=== PATIENT | female | born 1955 | race Caucasian/White ===

== ENCOUNTER 2025-04-09 06:52 | Day surgery (SDC) | payer MEDICARE, OTHER, SELFPAY ==
[2025-03-24 09:05] VITALS: BMI 30.8
--- NOTE | 2025-04-09 06:53 | WPDHPUPDATE1 ---
History and Physical Update Update Date/Time: 04/09/25 06:53 Patient seen and examined in pre-operative holding area. No interval change in medical history or symptoms. Patient recalls previous discussion of benefits and alternatives to procedure. Continues to desire to proceed with right ring finger a1 jessica release . Reviewed procedure, post-op expectations and risks including but not limited to bleeding, infection, injury to tendon/nerve/vessel, decreased hand function, stiffness, RSD, no change or worsening of symptoms. I discussed the possible use of assistants and their participation in the case. Patient stated understanding and signed the consent form wishing to proceed.
--- NOTE | 2025-04-09 06:54 | P.OP_ITS ---
Procedure Note - Detailed Date of Procedure 04/09/25 Pre-op Diagnosis Right Ring Trigger Finger Post-op Diagnosis Same Procedure Performed right ring finger a1 jessica release Surgeon Yulisa Brennan MD Supervisor [employer] shahbaz silvestre pa-c Anesthesia MAC Description of Procedure INFORMED CONSENT: The patient was seen and examined and marked in the pre-op area.? The patient signed the consent form. PROCEDURE IN DETAIL:The patient taken back to OR on the stretcher in supine position. Time out performed with anesthesia, surgeon and staff agreeing on patient's name site and surgery to be performed SCDs were placed on the lower extremities and inflated. A tourniquet was placed on {right} upper extremity and antibiotics given IV After anesthesia administered sedation I injected {3}cc 1%lido and 0.5% marcaine plain at the operative site The?{right upper extremity}?was prepped and draped in sterile fashion the??{right upper extremity} was? exsanguinated with Esmarch bandage and tourniquet inflated to 250mmHg I proceeded with making a longitudinal incision over the right ring finger A1 jessica through skin and dermis with a 15 blade scalpel. Littler scissors were used to spread through subcutaneous tissue down to the A1 jessica. The A1 jessica was identified and initially incised with a 15 blade scalpel. Littler scissors were used to spread above and below it proximally and distally completing the transection entirely. Ragnell retractor was used withdrawal the FDS and FDP tendons for inspection. The tendons were free of masses and synovitis and gliding smoothly in the sheath without triggering or crepitus. I irrigated with normal saline and closed with 4-0 chromic. A dressing of xeroform, 4x4, naveed, and steven bandage was applied after the tourniquet was let down noting the hand was warm and well perfused. The patient was then awaken from anesthesia and transferred to the recovery room in stable condition.? Complications - none EBL- 0cc Disposition - home in stable condition Shahbaz Silvestre PA-C was essential for positioning, retraction, closure and dressing placement [facility] Billing Surgery - Charge Forward: Surgery Billing ([id number] for shahbaz)
--- OUTSIDE RECORDS SUMMARY | 2025-04-09 07:29 | XMS_ITS | Clinical Summary ---
Author Organization [facility] Address [facility] [place] [address] Care Team Providers Care Machine Chocolate Molder Name Role Phone Kirill Roque MD Primary Care Provider [phone] Allergies Active Allergy Reactions Criticality Noted Date Comments Acetaminophen Other (see comment) 07/11/2021 Unable to take due to high liver enzymes Medications Calcium-Magnesi um-Vitamin D 600-300-400 Liquid Take 2 tablets by mouth daily. Active olopatadine 0.1 % ophthalmic solution Place 1 drop into both eyes daily. 02/10/2021 Active fluticasone propionate 50 MCG/ACT nasal spray 1 spray by Nasal route daily. Active zolpidem (AMBIEN) 10 MG tablet Take 1 tablet (10 mg total) by mouth nightly at bedtime. at bedtime. 06/21/2022 Active PRISTIQ 50 MG 24 hr tablet Take 1 tablet (50 mg total) by mouth daily. 06/18/2023 Active diclofenac EC (VOLTAREN) 50 MG tablet Take 1 tablet (50 mg total) by mouth 2 (two) times daily. 07/30/2023 Active ipratropium (ATROVENT) 0.06 % nasal spray 2 sprays by Nasal route 3 (three) times daily. 07/30/2023 Active Active Problems Problem Noted Date Diagnosed Date Status post total right knee replacement 022 Primary osteoarthritis of right knee 07/06/2021 Resolved Problems Problem Noted Date Diagnosed Date Resolved Date Follow-up examination after orthopedic surgery 11/10/2022 11/13/2022 Family History Medical History Relation Comments No Known Problems Brother Cancer Father Thyroid Heart Disease Mother No Known Problems Sister Relation Status Comments Brother Alive Father Mother Alive Sister Alive Social History Tobacco Use Types Packs/Day Years Used Date Smoking Tobacco: Never Smokeless Tobacco: Never Tobacco Cessation:Counseling Given: Not Answered Alcohol Use Standard Drinks/Week Comments Yes 0 (1 standard drink = 0.6 oz pur e alcohol) occasional Comments No Sex and Gender Information Value Date Recorded Sex Assigned at Not on file Legal Sex Female 5:55 PM MANAGER 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 Gender Identity Not on file Sexual Orientation Not on file Last Filed Vital Signs Vital Sign Reading Time Taken Comments Blood Pressure 112/55 11/22/2021 1:00 PM CDT Pulse 64 11/22/2021 1:00 PM CDT Temperature 36.5 C (97.7 F) 11/22/2021 1:00 PM CDT Respiratory Rate 16 11/22/2021 4:37 AM CDT Oxygen Saturation 96% 11/22/2021 1:00 PM CDT Inhaled Oxygen Concentration - - Weight 74.4 kg (164 lb) 12/25/2023 9:48 AM CDT Height 157.5 cm (5' 2) 12/25/2023 9:48 AM CDT Body Mass Index 30 12/25/2023 9:48 AM CDT Plan of Treatment Health Maintenance Due Date Last Done Comments Colorectal Cancer Screening Colonoscopy (10 Years) 1954 Hepatitis C 1972 DTaP, Tdap and Td Vaccines ( 1 - Tdap) 1973 Mammogram Screening 1994 Zoster Vaccines (1 of 2) 2004 Annual Medicare Wellness Visit 2019 Dexa Scan (General) 2019 Pneumococcal Vaccine: 50+ Years (2 of 2 - PPSV23) 03/03/2020 03/03/2019 COVID-19 Vaccine (3 - 2023-2 5 season) 2024 12/06/2020, 11/06/2020 RSV Immunization or 60+ Years (1 - 1-dose 75+ series) 2029 Meningococcal B Vaccine Aged Out No l onger eligible based on patient's age to complete this topic Meningococcal Vaccine Aged Out No vivek alfredo eligible based on patient's age to complete this topic RSV Immunizations Under 20 Months Aged Out No longer eligible b ased on patient's age to complete this topic Goals Goal Patient Goal Type Associated Problems Recent Progress Patient-Stated? Author Safety Patient/family will have appropriate support at home upon discharge General Amanda Tinajero, MANUSCRIPTS ARCHIVIST Medical Devices Implanted Type Area Facilities Director Device Identifier Shelf Expiration Date Model / Serial / Lot Cement Simplex Hv W/Gentamicin - [id number] Implanted:Qty : 1 on 11/21/2021 by Junito Martinez MD at [facility] Cement Implant Right: Knee [employer] DIV SAYRA JUSTINE 12/01/2022 6195-1-0 / [id number] MAGGI Cement Simplex Hv W/Gentamicin - [id number] Implanted:Qty : 1 on 11/21/2021 by Junito Martinez MD at [facility] Cement Implant Right: Knee [employer] DIV [employer] JUSTINE 12/01/2022 6195-1-0 [id number] MAGGI Femoral Depuy Attune Cruciate Retaining Size 5 Right - [id number] Implanted:Qty : 1 on 11/21/2021 by Junito Martinez MD at [facility] Knee Components Right: Knee [employer] - A [employer] [id number] 07/03/2031 1504-00- 225 / / [id number] Attune Knee System Revision Tibial Base Fixed Bearing Implanted:Qty : 1 on 11/21/2021 by Junito Martinez MD at [facility] Right: Knee [employer] [id number] 12/01/2029 1506-40- 005 / / [id number] Attune Patella Medialized Dome Implanted:Qty : 1 on 11/21/2021 by Junito Martinez MD at [facility] Right: Knee [employer] [id number] 09/02/2026 1518-20- 035 / / [id number] Tibial Insert Fixed Bearing Cruciate Retaining Implanted:Qty : 1 on 11/21/2021 by Junito Martinez MD at [facility] Right: Knee [employer] [id number] 10/03/2022 1516-20- 512 / / [id number] Insurance MEDICARE [facility] [employer] Advance Directives * Full Code (Latest Code Status on File) Date Activated Date Inactivated Comments 11/21/2021 10:42 AM 11/22/2021 4:45 PM Care Teams Machine Chocolate Molder Relationship Specialty Start Date End Date Kirill Roque MD [address] [place] [id number] PCP - General FAMILY PRACTICE 05/12/21
--- OUTSIDE RECORDS SUMMARY | 2025-04-09 07:29 | XMS_ITS | Clinical Summary ---
Author Organization [facility] Address [address] [place] [address] Care Team Providers Care Budget Coordinator Name Role Phone Kirill Roque MD Primary Care Provider Allergies No known active allergies Medications calcium carbonate/vitam in D3 (CALCIUM 600 + D,3, ORAL) Take 2 tablets by mouth medical billing assistant before breakfast. supplement Active fluticasone (FLONASE) 50 mcg/actuation nasal sprayIndication s:Allergic Rhinitis Administer 1 spray into each nostril every morning. Active zolpidem (AMBIEN) 10 mg tabletIndicatio ns:Sleep-Onset Insomnia Take 5 mg by mouth nightly. 3 8 Active venlafaxine XR (EFFEXOR-XR) 75 mg 24 hr capsuleIndicati ons:Anxiety with Depression Take 75 mg by mouth every morning. 4 8 Active peg 400-propylene glycol (SYSTANE GEL) 0.4-0.3 % drops,gelIndica tions:Dry Eye Administer 1 drop into affected eye(s) as needed. Active amoxicillin (AMOXIL) 500 mg tablet/capsuleI ndications:Prop hylaxis, Medical Take 4 tablets one hour prior to procedure or dental cleaning. 4 tablet/capsul e 2 9 Active Active Problems Problem Noted Date Diagnosed Date Obesity 07/08/2018 Primary osteoarthritis of right hip 06/26/2018 Overview (06/26/2018): Added automatically from request for surgery [id number] Primary osteoarthritis of left ankle 04/15/2018 Osteoarthritis of one hip, right 01/09/2018 Right hip pain 01/09/2018 Ankle pain 07/11/2017 Surgical History Surgery Date Site/Laterality Comments DILATION AND CURETTAGE OF UTERUS COLONOSCOPY TOTAL ANKLE ARTHROPLASTY 03/03/2018 - 04/02/2018 Left HIP SURGERY TOTAL HIP ARTHROPLASTY Right Medical History Medical History Date Comments Osteoarthritis Fibromyalgia Family History Medical History Relation Name Comments Thyroid cancer Father Family histor y of malignant neoplasm of thyroid - (Added by TW Conv) Arthritis Mother Family history of arthritis - (Added by TW Conv) Fibromyalgia Mother Family history of fibromyalgia - (Added by TW Conv) Heart disease Mother Family history of cardiac disorder - (Added by TW Conv) Mental illness Mother FHx: mental i llness - (Added by TW Conv) Relation Name Status Comments Father Mother Social History Tobacco Use Types Packs/Day Years Used Date Smoking Tobacco: Former Cigarettes 1 6 1974 Smokeless Tobacco: Never Alcohol Use Standard Drinks/Week Comments Yes 4 (1 standard drink = 0.6 oz pur e alcohol) Comments No Sex and Gender Information Value Date Recorded Sex Assigned at Not on file Legal Sex Female 10:22 AM COMPUTER ANIMATOR Gender Identity Not on file Sexual Orientation Not on file Obstetrics History Last Filed Vital Signs Vital Sign Reading Time Taken Comments Blood Pressure 100/56 07/13/2018 12:00 PM COMPUTER ANIMATOR Pulse 66 07/13/2018 12:00 PM COMPUTER ANIMATOR Temperature 36.7 C (98.1 F) 07/13/2018 12:00 PM COMPUTER ANIMATOR Respiratory Rate 18 07/13/2018 12:0 0 PM COMPUTER ANIMATOR Oxygen Saturation 96% 07/13/2018 11: 42 AM COMPUTER ANIMATOR Inhaled Oxygen Concentration - - Weight 72.1 kg (158 lb 15.2 oz) 021 10:22 AM CDT Height 154.9 cm (5' 1) 04/13/2021 10:2 2 AM CDT Body Mass Index 30.03 04/13/2021 10:22 AM CDT Plan of Treatment Not on file Medical Devices Implanted Type Area Electronics Engineering Manager Device Identifier Shelf Expiration Date Model / Serial / Lot Euro Card [place] [id number] Inbone Sulcus Ankle 2 Dome Component Talar - [id number] Implanted:Qty: 1 on 03/05/2018 by Timo Albert MD at [facility] Other - see comments Left: Ankle [employer] Card [place] 01/01/2026 [id number] / / [id number] Description:INBONE Talar Dom e Sulcus, Plasma [place] Material: CoCr, Flying Pig Digitali Seemage Technology Inc [id number] Infinity 2 Standard Tray Tibial - [id number] Implanted:Qty: 1 on 03/05/2018 by Timo Albert MD at [facility] Other - see comments Left: Ankle [employer] Inc 12/03/2025 [id number] / / [id number] Description:INFINITY Tibial Tray Plasma [place] Material: [id number], Urban Interactions Technology Inc [id number] Ankle 1 Large 10mm Stem Talar - [id number] Implanted:Qty: 1 on 03/05/2018 by Timo Albert MD at [facility] Other - see comments Left: Ankle [employer] Inc 02/02/[id number] / / [id number] Description:INBONE Talar Juvenal m Plasma [place] Material: [id number], Flying Pig Digitali Arthrex Inc Ar-[id number] Tenodesis 4mm 10mm Acl Screw Interference Biocomposite Sterile - [id number] Implanted:Qty: 1 on 03/05/2018 by Timo Albert MD at [facility] Other - see comments Left: Ankle Arthrex Inc 11/01/2019 AR-[id number] / / [id number] Description:Tenodesis Screw BioComposite 4 x 10 mm Infinity Poly Insert Material: [id number] Implanted:Qty: 1 on 03/05/2018 by Timo Albert MD at [facility] Other - see comments Left: Ankle Se[employer] Inc 02/09/2025 / / [id number] Description:INFINITY Poly In sert Material: UHMWPE Seemage Technology Inc [id number] K-Wire 1.4mm 228mm Wire Fixation - S0 - [id number] Implanted:Qty: 2 on 03/05/2018 by Timo Albert MD at [facility] Left: Ankle Mindframe Inc [id number] / 0 / 0 [employer] [id number] Steinmann 5/64in 9in Trocar Point One End Pin Fixation Stainless - S0 - [id number] Implanted:Qty: 1 on 03/05/2018 by Timo Albert MD at [facility] Left: Ankle [employer] [id number] / 0 / 0 Anaya Biomet Inc [id number] G7 48mm Limit 3 Hole Hip C Hemisphere Offset Shell Acetabular - [id number] Implanted:Qty: 1 on 07/12/2018 by Ofelia Duran MD at [facility] Right: Hip [employer] Inc [id number] 01/20/2028 [id number] / / [id number] Anaya Bi[employer] Inc [id number] Trilogy 6.5mm 40mm Self Tap Hip Acetabular Cortical Screw Bone - [id number] Implanted:Qty: 1 on 07/12/2018 by Ofelia Duran MD at [facility] Right: Hip [employer]aya [employer] Inc [id number] 06/02/2028 [id number] / / [id number] Anaya Bi[employer] Inc [id number] G7 32mm Hip C Neutral Liner Acetabular Arcomxl - [id number] Implanted:Qty: 1 on 07/12/2018 by Ofelia Duran MD at [facility] Right: Hip [employer] Inc [id number] 05/22/2023 [id number] / / [id number] Anaya [employer] Inc [id number] 12mm 128mm 34.9mm Primary Press Fit Hip /14 35.5mm Standard - [id number] Implanted:Qty: 1 on 07/12/2018 by Ofelia Duran MD at [facility] Right: Hip [employer] Inc [id number] 03/02/2028 [id number] / / [id number] Anaya [employer] Inc [id number] Versys Legacy 32mm Hip 0mm /14 Head Femoral Zimaloy Sterile - [id number] Implanted:Qty: 1 on 07/12/2018 by Ofelia Duran MD at [facility] Right: Hip [employer]aya [employer] Inc [id number] 09/02/2026 [id number] / / [id number] Anaya [employer] Inc [id number] Cable-Ready 1.8mm 635cm Cerclage Crimp Trochanter Cable - [id number] Implanted:Qty: 1 on 07/12/2018 by Ofelia Duran MD at [facility] Right: Hip [employer] Inc [id number] 01/01/2028 [id number] / / [id number] Anaya [employer] Inc [id number] Cable-Ready 1.8mm 635cm Cerclage Crimp Trochanter Cable - [id number] Implanted:Qty: 1 on 07/12/2018 by Ofelia Duran MD at [facility] Right: Hip [employer] Inc [id number] 04/02/2028 [id number] / / [id number] [place] [address] MEDICARE [facility] [id number] [facility] [place] [address] [facility] Advance Directives For more information, please contact: [phone] * Full Code (Latest Code Status on File) Date Activated Date Inactivated Comments 07/12/2018 8:03 PM 07/13/2018 5:14 PM * Full Code Date Activated Date Inactivated Comments 03/05/2018 6:43 PM 03/06/2018 3:52 PM Care Teams Budget Coordinator Relationship Specialty Start Date End Date Kirill Roque MD PCP - General Family Medicine 12/31/20
--- OUTSIDE RECORDS SUMMARY | 2025-04-09 07:29 | XMS_ITS | Encounter Summary ---
Author Organization [facility] Address [address] [place] [address] Care Team Providers Care Voice And Data Technician Name Role Phone Pj Garcia MD Primary Care Provider [phone] Kirill Roque MD Primary Care Provider Encounter Details Date Type Department Care Team (Late st Contact Info) Description 02/08/2019 Abstract SFL CONVERSION [address] [place] [address] , Generic ConversionMD Social History Tobacco Use Types Packs/Day Years Used Date Smoking Tobacco: Never Assessed Comments Unknown Sex and Gender Information Value Date Recorded Sex Assigned at Not on file Legal Sex Female 5:55 PM GRAVITY FLOW IRRIGATOR Gender Identity Not on file Sexual Orientation Not on file documented as of this encounter Plan of Treatment Not on file documented as of this encounter Visit Diagnoses Not on filedocumented in this encounter Additional Health Concerns Infection Onset Date Last Indicated Resolved Time COVID-19 Rule Out 10/14/2021 10/14/2021 10/14/2021 7:53 PM GRAVITY FLOW IRRIGATOR COVID-19 Confirmed 10/14/2021 10/14/2021 12:32 AM GRAVITY FLOW IRRIGATOR documented as of this encounter Care Teams Voice And Data Technician Relationship Specialty Start Date End Date Pj Garcia MD [address] [place] [address] PCP - General FAMILY PRACTICE 02/03/20 05/11/21 [place] [address] [address] PCP - General FAMILY PRACTICE 05/12/21 documented as of this encounter
--- OUTSIDE RECORDS SUMMARY | 2025-04-09 07:29 | XMS_ITS | Encounter Summary ---
Author Organization [facility] Address [address] [place] [address] Care Team Providers Care Street Photographer Name Role Phone Kirill Roque MD Primary Care Provider [phone] Encounter Details Date Type Department Care Team (Late st Contact Info) Description 11/20/2023 [employer] Message Enc [facility] [place] [address] Junito Martinez MD [address] [place] [address] Visit Follow Up Social History Tobacco Use Types Packs/Day Years Used Date Smoking Tobacco: Never Smokeless Tobacco: Never Alcohol Use Standard Drinks/Week Comments Yes 0 (1 standard drink = 0.6 oz pur e alcohol) occasional Comments No Sex and Gender Information Value Date Recorded Sex Assigned at Not on file Legal Sex Female 5:55 PM RECTIFIER OPERATOR Gender Identity Not on file Sexual Orientation Not on file documented as of this encounter Functional Status * RETIRED Are you deaf or do you have serious difficulty hearing Answer Date of Assessment Author Status No 11/21/2021 10:32 AM CDT Acti ve * RETIRED Are you blind or do you have serious difficulty seeing, even when wearing glasses? Answer Date of Assessment Author Status No 11/21/2021 10:32 AM CDT Acti ve * Do you have serious difficulty walking or climbing stairs? Answer Date of Assessment Author Status Yes 11/21/2021 10:32 AM Jane Guan RN Active * Do you have difficulty dressing or bathing? Answer Date of Assessment Author Status No 11/21/2021 10:32 AM Jane Guan RN Active * Because of a physical, mental, or emotional condition, do you have difficulty doing errands alone such as visiting a doctor's office or shopping? Answer Date of Assessment Author Status No 11/21/2021 10:32 AM Jane Guan RN Active documented as of this encounter Mental Status * Because of a physical, mental, or emotional condition, do you have serious difficulty concentrating, remembering, or making decisions? Answer Entry Date Author Status No 11/21/2021 10:32 AM Jane Guan RN Active documented in this encounter Plan of Treatment Not on file documented as of this encounter Goals Goal Patient Goal Type Associated Problems Recent Progress Patient-Stated? Author Safety Patient/family will have appropriate support at home upon discharge Amanda Joseph LSW documented as of this encounter Visit Diagnoses Not on filedocumented in this encounter Care Teams Street Photographer Relationship Specialty Start Date End Date Kirill Roque MD [address] [place] [address] [place] [address] PCP - General FAMILY PRACTICE 05/12/21 documented as of this encounter
--- OUTSIDE RECORDS SUMMARY | 2025-04-09 07:29 | XMS_ITS | Encounter Summary ---
Author Organization [facility] Address [address] [place] [address] Care Team Providers Care Processor Grain Name Role Phone Kirill Roque MD Primary Care Provider [phone] Encounter Details Date Type Department Care Team (Late st Contact Info) Description 05/12/2022 Good Thing Message Enc [facility] [place] [address] Junito Martinez MD [address] [place] [address] Visit Follow Up Social History Tobacco Use Types Packs/Day Years Used Date Smoking Tobacco: Never Smokeless Tobacco: Never Alcohol Use Standard Drinks/Week Comments Yes 0 (1 standard drink = 0.6 oz pur e alcohol) occasional Comments No Sex and Gender Information Value Date Recorded Sex Assigned at Not on file Legal Sex Female 5:55 PM 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 No / Unsure 05/12/2022 8:52 AM CDT documented as of this encounter Functional Status [...] appropriate support at home upon discharge General No Amanda Goff LSW documented as of this encounter Visit Diagnoses Not on filedocumented in this encounter Care Teams Processor Grain Relationship Specialty [place] [address] [place], [place] [address]j[place] [address] PCP - General FAMILY PRACTICE 05/12/21 documented as of this encounter
--- OUTSIDE RECORDS SUMMARY | 2025-04-09 07:29 | XMS_ITS | Encounter Summary ---
Author Organization [facility] Address [address] [place] [address] Care Team Providers Care Aerial Installer Name Role Phone Kirill Roque MD Primary Care Provider [phone] Encounter Details Date Type Department Care Team (Late st Contact Info) Description 11/10/2022 [employer] Message [place] [address] Junito Martinez MD [address] [place] [address] Visit Follow Up Social History Tobacco Use Types Packs/Day Years Used Date Smoking Tobacco: Never Smokeless Tobacco: Never Alcohol Use Standard Drinks/Week Comments Yes 0 (1 standard drink = 0.6 oz pur e alcohol) occasional Comments No Sex and Gender Information Value Date Recorded Sex Assigned at Not on file Legal Sex Female 5:55 PM ELECTROTYPE MOLDER Gender Identity Not on file Sexual Orientation Not on file COVID-19 Exposure Response Date Recorded In the last 10 days, have yo u been in contact with someone who was confirmed or suspected to have Coronavirus/COVID-19? No / Unsure 11/10/2022 8:56 AM ELECTROTYPE MOLDER documented as of this encounter Functional Status [...] Date Author Status No 11/21/2021 10:32 AM aJne Guan RN Active documented in this encounter Plan of Treatment Not on file documented as of this encounter Goals Goal Patient Goal Type Associated Problems Recent Progress Patient-Stated? Author Safety Patient/family will have appropriate support at home upon discharge General No Amanda Goff LSW documented as of this encounter Visit Diagnoses Not on filedocumented in this encounter Care Teams Aerial Installer Relationship Specialty [place] [address] [place], [place] [address] [address] PCP - General FAMILY PRACTICE 05/12/21 documented as of this encounter
--- OUTSIDE RECORDS SUMMARY | 2025-04-09 07:29 | XMS_ITS | Clinical Summary ---
Author Organization [facility] Address [address] [place] [address] Care Team Providers Care Rf Test Technician Name Role Phone Kirill Roque MD Primary Care Provider [phone] Source Comments [facility],non-owned Affiliates and Associated Physician Practices is amultiple site organization consisting of ambulatory clinics and hospital sitesin [place], [place], [place] and [place]. This disclosure is being madepursuant to the Care Everywhere program and may not contain all information available regarding this patient. Last updated 18.[facility] Allergies No known active allergies Medications * Be aware that medications may not be up to date on this document. Alwaysverify current medications with the patient. venlafaxine (EFFEXOR) 37.5 MG tablet Take 75 mg by mouth once daily Active zolpidem (AMBIEN) 5 MG tablet Take 5 mg by mouth once daily Active IBUPROFEN PO Take 400-600 mg by mouth once daily Active Multiple Minerals-Vitamin s (CALCIUM-MAGNESI UM-ZINC-D3 PO) Take 1 tablet by mouth once daily Active Active Problems No known active problems Social History Tobacco Use Types Packs/Day Years Used Date Smoking Tobacco: Former Smokeless Tobacco: Never Alcohol Use Standard Drinks/Week Comments Yes 0 (1 standard drink = 0.6 oz pur e alcohol) Comments Unknown Sex and Gender Information Value Date Recorded Sex Assigned at Not on file Legal Sex Female 1:24 PM CDT Gender Identity Not on file Sexual Orientation Not on file Last Filed Vital Signs Vital Sign Reading Time Taken Comments Blood Pressure 127/90 07/15/2019 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 Pulse 68 07/15/2019 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 Temperature - - Respiratory Rate - - Oxygen Saturation 99% 07/15/2019 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 Inhaled Oxygen Concentration - - Weight 74.8 kg (165 lb) 07/15/2019 7:50 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 Height 154.9 cm (5' 1) 07/15/2019 7:50 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 Body Mass Index 31.18 07/15/2019 7:50 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 Plan of Treatment Health Maintenance Due Date Last Done Comments BONE DENSITY TESTING 1954 COLOGUARD (AGES 45-75) - COL ON CA SCREENING 1954 COLON MONITORING 1954 COLONOSCOPY - COLON CA SCREENING 1954 CT COLONOGRAPHY - COLON CA SCREENING 1954 Colorectal Cancer Screening 1954 FIT - COLON CA SCREENING 1954 FLEX SIG - COLON CA SCREENING 1954 LIPID TESTING 1954 MAMMOGRAM 1954 HEPATITIS C SCREENING 08/24/1972 DTAP/TDAP/TD VACCINES (1 - Tdap) 1973 PNEUMOCOCCAL VACCINE 50+ (1 of 1 - PCV) 2004 ZOSTER VACCINE (1 of 2) 2004 SCREENING FOR DIABETES 06/11/2019 COVID-19 VACCINE (1 - 2023-2 5 season) 2024 DEPRESSION SCREENING 09/03/2024 INFLUENZA VACCINE (#1) 2025 Respiratory Syncytial Virus (RSV) Vaccine Pt: or over 60 yrs (1 - 1-dose 75+ series) 2029 HEPATITIS B VACCINE Aged Out No longe r eligible based on patient's age to complete this topic HIB VACCINE Aged Out No longer eligi ble based on patient's age to complete this topic HPV VACCINE Aged Out No longer eligi ble based on patient's age to complete this topic MENINGOCOCCAL (Group B) VACC INE SHARED DECISION-MAKING Aged Out No longer eligibl e based on patient's age to complete this topic MENINGOCOCCAL GROUPS A/C/Y/W VACCINE Aged Out No longer eligible b ased on patient's age to complete this topic Insurance [facility] Care Teams Rf Test Technician Relationship Specialty Start Date End Date Kirill Roque MD [address] [place] [phone] PCP - General 09/12/21
--- OUTSIDE RECORDS SUMMARY | 2025-04-09 07:29 | XMS_ITS | Patient Health Record ---
Author Organization [facility] Address [address] [place] [address] Support Name Relationship Address Phone ROXANA HUFFMAN Guarantor Unknown Reason For Referral No Information Plan Of Treatment No Information Insurance Providers Payer Name Payer Address Payer Phone Subscriber Number Group Number Insured Name Patient Relationship to Insured Coverage Start Date Coverage End Date [facility] [address] [place] [address] [id number] HERIBERTO HUFFMAN Spouse - patient is the spouse of the insured
--- NOTE | 2025-04-09 07:53 | WPDANESEPPF ---
Anes - Initial Pre Proc Eval Procedure: Operation Date: 04/09/25 09:00 Proposed Procedures p A-1 Efrain Release Right Ring Finger - Yulisa Brennan MD Date/Time: 04/09/25 07:53 Surgeon: Yulisa Brennan MD Pre Op Diagnosis: Right Ring Trigger Finger Patient Data Age: 69 Gender: F Height: 1.57 m Weight: 76.5 kg Allergies Allergy/AdvReac Type Severity Reaction Status Date / Time acetaminophen (From Tylenol) Allergy Intermediate Elevated Verified 04/09/25 07:45 liver enzymes Home Medications ?Medication ?Instructions ?Recorded ?Confirmed ?Type desvenlafaxine succinate 50 mg 50 mg PO DAILY 12/11/23 04/09/25 History tablet,extended release 24 hr (Pristiq) zolpidem 5 mg tablet (Ambien) 5 mg PO QHS 12/11/23 04/09/25 History cetirizine 10 mg tablet 10 mg PO DAILY 03/24/25 04/09/25 History Patient hx anesthesia problems: none Family hx anesthesia problems: none Results Review: All pre-operative results and documents have been reviewed as part of the pre-operative evaluation. [facility] Social History Social History (Updated 03/30/25 @ 15:45 by Hailey Ayers) Social History: Caffeine-coffee Smoking status: Former smoker Tobacco type: cigarettes Second hand tobacco smoke exposure: No Alcohol intake: current Drinks per week: 2 Substance use: never Substance use type: does not use Do You Feel Safe in your Home?: Yes Lack of Transportation: No Lack of Food: Never True Current Housing: I Have Housing Concerned About Future Housing: No Difficulty Paying Gas/Electric Bills: No Difficulty Paying for Meds: No Currently Unemployed: No Education: Bachelor's Degree Difficulty w/ Childcare or Family Care: No Living arrangements: with family Spiritual care concerns: No Anes - Eval Final PreProcedure Day of Procedure 04/09/25 07:53 Heart: regular rate and rhythm Lungs: clear to auscultation Airway: Mallampati scale class II Neurological: alert and oriented Last oral intake: >/= 8 hours ASA classification: II Anesthetic plan: proceed Anesthesia type and monitoring: monitored anesthesia care Results Review: All pre-operative results and documents have been reviewed as part of the pre-operative evaluation. Informed Consent: The patient's anesthetic plan and its attendant risks and benefits were discussed with the patient/family/POA. Questions were solicited and answers provided to the satisfaction of the patient/family/POA.
[2025-04-09 07:58] VITALS: BMI 30.9
[2025-04-09 08:00] VITALS: BP 108/77; PULSE 64; RESP 16; TEMP 36.3; O2SAT 99
[2025-04-09] MEDS: LACTATED RINGERS 1,000 ML 30 ML IV CONT (08:16)
[2025-04-09] MEDS: LIDOCAINE 1% LOCAL INJ 20 ML VIAL 3 ML INFILTRATE (08:35)
[2025-04-09 08:46] VITALS: BP 99/54; PULSE 60; RESP 14; O2SAT 96
--- NOTE | 2025-04-09 08:50 | WPDANESPN ---
Anes - Prog Note Post-Op Date/Time: 04/09/25 08:50 Vital Signs: Last Vital Signs Temp 97.4 F L 04/09/25 08:00 Pulse 64 04/09/25 08:00 Resp 16 04/09/25 08:00 BP 108/77 04/09/25 08:00 Pulse Ox 99 04/09/25 08:00 O2 Del Method Room Air 04/09/25 08:00 Pain Score (VAS): no Patient Feedback: Patient satisfied with anesthetic care.
[2025-04-09 09:05] VITALS: BP 97/61; PULSE 59; RESP 16; O2SAT 95
[2025-04-09 09:20] VITALS: BP 106/61; PULSE 65; RESP 16; O2SAT 96
== END 2025-04-09 09:30 | disposition home or self-care (01) ==
PROVIDERS: Visit Provider Plastic Surgery
PROC: (CPT 26055; principal; 2025-04-09 09:00)
DX: M65.341 Trigger finger, right ring finger (principal)
CPT/HCPCS: 26055